=== PATIENT | male | born 1945 | race Caucasian/White ===

== ENCOUNTER 2017-05-09 06:08 | Day surgery (SDC) | payer OTHER ==
[~2017-05-09] VITALS: Ht 177.8 cm; Wt 99.7 kg
[2017-05-09] VITALS (8 sets, daily range): BP systolic 144–159; BP diastolic 52–80; PULSE 60–82; RESP 16–18; TEMP 97.7–98; O2SAT 92–97
[2017-05-09] MEDS ORDERED: SODIUM CHLORIDE 0.9% 500 ML BAG OTHER ONE (06:09)
[2017-05-09] MEDS ORDERED: SODIUM CHLORID 0.9% 500 ML INJ 500 ML IV SCH (06:45)
[2017-05-09] MEDS ORDERED: LORazepam 1 MG TAB SL SCH (06:45)
[2017-05-09] MEDS ORDERED: CHLORHEXIDINE GLUCONATE 2 % 1 PACK (2 CLOTHS) TOPICAL PRN (06:45)
[2017-05-09] MEDS ORDERED: LACTATED RINGER'S 1000 ML IV PRN (06:45)
[2017-05-09] MEDS ORDERED: POVIDONE IODINE 5% (ANTISEPSIS KIT) 4 APPLICATIONS EACH NARE PRN (06:45)
[2017-05-09] MEDS ORDERED: LISI40TA PO (07:05)
[2017-05-09] MEDS ORDERED: ATOR40TA16 PO (07:05)
[2017-05-09] MEDS ORDERED: AMLO10TA2 PO (07:05)
[2017-05-09] MEDS ORDERED: CLON0.1T PO (07:05)
[2017-05-09] MEDS ORDERED: METO50TA PO (07:05)
[2017-05-09] MEDS ORDERED: WARF-58 PO (07:05)
[2017-05-09 07:06] LABS: AUTOMATED NEUTROPHIL # 3.9 TH/MM3 (1.8-7.7); BASOPHIL # 0.1 TH/MM3 (0-0.2); EOSINOPHIL # 0.1 TH/MM3 (0-0.4); EOSINOPHIL % 1.3 % (0.0-4.0); HEMATOCRIT 48.4 % (39.0-51.0); HEMOGLOBIN 16.4 GM/DL (13.0-17.0); LYMPH % 28.3 % (9.0-44.0); LYMPHOCYTE # 1.8 TH/MM3 (1.0-4.8); MEAN CELL VOLUME 83.3 FL (80.0-100.0); MEAN CORPUSCULAR HEMOGLOBIN 28.1 PG (27.0-34.0); MEAN CORPUSCULAR HGB CONC 33.8 % (32.0-36.0); MEAN PLATELET VOLUME 8.2 FL (7.0-11.0); MONO % 7.6 % (0.0-8.0); MONOCYTE # 0.5 TH/MM3 (0-0.9); NEUT % 61.8 % (16.0-70.0); PLATELET COUNT 233 TH/MM3 (150-450); RED BLOOD COUNT 5.82 MIL/MM3 (4.50-5.90); RED CELL DISTRIBUTION WIDTH 15.1 % (11.6-17.2); WHITE BLOOD COUNT 6.3 TH/MM3 (4.0-11.0)
[2017-05-09] MEDS ORDERED: HEPARIN SODIUM - IV 10,000 UNITS/10 ML VIAL ONE ×2 (07:06→09:17)
[2017-05-09] MEDS ORDERED: HEPARIN-NS/PF FLUSH BAG 1,000 ML IV FLUSH ONE (07:06)
[2017-05-09 07:15] LABS: INTERNATIONAL NORMALIZED RATIO 3.1 RATIO; PROTHROMBIN TIME - PATIENT 31.2 SEC (9.8-11.6)
[2017-05-09 07:37] LABS: BICARBONATE 28.2 MEQ/L (21.0-32.0); CALCIUM 8.7 MG/DL (8.5-10.1); CREATININE 1.49 MG/DL (0.60-1.30)
[2017-05-09] MEDS ORDERED: HEPARIN-D5W 25,000 U/250 ML 250 ML ONE (09:16)
[2017-05-09] MEDS ORDERED: PROTAMINE SULFATE 50 MG/5 ML VIAL ONE (09:17)
[2017-05-09] MEDS ORDERED: LEVOFLOXACIN 500 MG PREMIX INJ 100 ML IV ONE (09:35)
[2017-05-09] MEDS ORDERED: ONDANSETRON HCL 4 MG/2 ML VIAL IV PUSH ONE (12:00)
[2017-05-09] MEDS ORDERED: METOPROLOL TARTRATE 5 MG/5 ML VIAL IV ONE (12:00)
[2017-05-09] MEDS ORDERED: LIDOCAINE HCL 1% PF 5 ML SYRINGE OTHER ONE (12:00)
[2017-05-09] MEDS ORDERED: PROPOFOL 200 MG/20 ML AMP IV ONE (12:00)
[2017-05-09] MEDS ORDERED: SODIUM CHLORID 0.9% 500 ML INJ 500 ML IV ONE (12:00)
[2017-05-09] MEDS ORDERED: ROCURONIUM INJ 50 MG/5 ML SYRINGE IV PUSH ONE (12:00)
[2017-05-09] MEDS ORDERED: ePHEDrine/NS 25 MG/5 ML SYRINGE IV ONE (12:00)
[2017-05-09] MEDS ORDERED: NEOSTIGMINE 5 MG/5 ML SYRINGE IV PUSH ONE (12:00)
[2017-05-09] MEDS ORDERED: PHENYLEPH/NS 1000 MCG/10 ML SYR IV ONE (12:00)
[2017-05-09] MEDS ORDERED: DEXAMETHASONE SOD PHOS 4 MG/ML VIAL IV ONE (12:00)
[2017-05-09] MEDS ORDERED: GLYCOPYRROLATE 1 MG/5 ML SYRINGE IV PUSH ONE (12:00)
--- NOTE | 2017-05-09 12:16 | CATHPROC ---
[facility] HIS Report Study Information Study Number Admission Scheduled Start Study Start [id number] May 09 2017 6:08AM 05/09/2017 May 09 2017 9:31AM [place] [facility] Electrophysiology Study Admit Source Facility Department Other [facility] - Electrical Design Engineer Physician and Clinical Staff Initial Kari [place] Chicken Sexer Abdoul Henderson,RT(R) Other Anesthesia, CIGAR MAKING MACHINE SUPERVISOR Recorder Deric RN, Radha Segura,RT(R) TECH2 Procedures Performed Procedure Location (Site) Vessel Name Ablation Procedure Cardioversion ICE CATHETER INSERT RA Atruim RF Ablation LT. ATRIUM LT. ATRIUM Equipment Time Artificial Plastic Eye Maker Description Size Mfg Part Number Used/Scraped NEEDLE, TRANSSEPTAL NRG 98 [id number] 09:55 [facility] Used C1 *[id number] [employer]/ EP [id number] 09:55 KIT, TRANSDUCER / AFIB Used PACER *[id number] CATHETER, TACTICATH ABLAT BUNDLE 09:55 BUNDLE-ST. BHUPINDER Used 65 BUNDLE *[id number]- BUNDLE [id number] CATHETER, FR7 OPTIMA SPIRAL 09:55 BUNDLE-ST. BHUPINDER FR7 *[id number]- Used BUNDLE BUNDLE [id number] 09:55 BUNDLE-ST. BHUPINDER CATHETER, JSN, QUAD BUNDLE FR 5 *[id number]- Used BUNDLE [id number] 09:55 BUNDLE-ST. BHUPINDER CATHETER, JSN, QUAD BUNDLE FR 5 *[id number]- Used BUNDLE [id number] SET, COOL POINT TUBING 09:55 BUNDLE-ST. BHUPINDER *[id number]- Used BUNDLE BUNDLE SHEATH, FR8.5 STEERABLE SM 09:55 BUNDLE-ST. BHUPINDER 71CM [id number] Used 71CM BUNDLE COVER, TRANSDUCER CABLE [id number] 09:55 [employer] Used ACUNAV *[id number] 09:55 CORDIS/PACER SHEATH, FR10 MATTHIAS 11CM FR 10 Used *[id number] 09:55 CORDIS/PACER SHEATH, FR9 MATTHIAS 11CM FR 9 [id number] Used [id number] 09:55 [employer] INDUSTRIES PACK, CCL CUSTOM * Used *[id number] 09:55 MEDLINE PACER PELAYO, LIMB * 2530 *[id number] Used [id number] 09:55 Attune RTD MEDICAL SHEATH, FR4.5 PRELUDE 11CM FR 4.5 Used [id number] 09:55 NAMIC TUBING, HIGH PRESSURE 48" 48" Used *[id number] 09:55 NAMIC TUBING, HIGH PRESSURE 48" 48" Used *[id number] NEEDLE, FEMORAL ONE STICK, [id number] 10:19 DANY 18GA Used 18GA *[id number] 09:55 QUICK MEDICAL BLANKET,WARM AIR CCL * Used *[id number] 09:55 [facility] BHUP[facility]ER MEDICAL ELECTRODE KIT, MARE X SURFACE * Used *[id number] 244569 09:55 [facility]. BHUP[facility]ER MEDICAL SHEATH, EPS, FR6 FAST CATH FR 6 Used *[id number] 09:55 ST. BHUPINDER MEDICAL SHEATH, EPS, FR7 FAST CATH FR 7 [id number] Used [id number] 09:55 [facility]. BHUP[facility] MEDICAL SHEATH, EPS, FR8 FAST CATH FR 8 Used *[id number] CATHETER, ACUNAV FR10 ICE [id number] 10:10 JOHANNE FR 10 Used (JOHANNE) *[id number] [facility] PAD, ELECTROSURGICAL 09:55 * [id number] *[id number] Used SURGICAL GROUNDING (BLUE) History: Allergies Allergy Reaction NKDA Labs Hgb (g/dl) Hct (%) WBC (l/cumm) Platelets (thousands) 11.60-17.00 35.00-51.00 4.00-11.00 150.00-450.00 16.4 48.4 6.3 233 Glucose (mg/dl) BUN (mg/dl) Creatinine (mg/dl) BUN:Creatinine (1:x) 74.00-106.00 7.00-18.00 0.50-1.30 10.00-20.00 101 13 1.5 8.7 Na (meq/l) K (meq/l) 136.00-145.00 3.50-5.10 140 4 INR (PTT:PT) 0.90-1.10 3.1 CPK-MB (ng/ML) 0.50-3.60 Not Drawn Medication Medication Total Dose (Bolus/Oral) Medication Total Dosage/Unit 1% XYLOCAINE 10 mL HEPARIN 7000 units LOPRESSOR 5 mg Medications (Bolus/Oral) Medication Time Given Dosage/Unit Administered By Reason 1% XYLOCAINE 05/09/2017 10:11:56 AM 10 mL Kari Soliz 10 mL 1% XYLOCAINE given by Kari Soliz in Left Groin via Subcutaneous. Ordered by Kari Soliz. HEPARIN 05/09/2017 10:44:57 AM 5000 units Anesthesia, CIGAR MAKING MACHINE SUPERVISOR 5000 units HEPARIN given by Anesthesia, CIGAR MAKING MACHINE SUPERVISOR via Peripheral IV. Ordered by Kari Soliz. HEPARIN 05/09/2017 11:33:10 AM 2000 units Anesthesia, CIGAR MAKING MACHINE SUPERVISOR 2000 units HEPARIN given by Anesthesia, CIGAR MAKING MACHINE SUPERVISOR via Peripheral IV. Ordered by Kari Soliz. LOPRESSOR 05/09/2017 11:47:55 AM 5 mg Anesthesia, CIGAR MAKING MACHINE SUPERVISOR 5 mg LOPRESSOR given by Anesthesia, CIGAR MAKING MACHINE SUPERVISOR. Ordered by Kari Soliz. Medication (Drip) Medication Time Given Dosage/Unit Concentration/Unit Diluent (ml) Solution ISUPREL 05/09/2017 11:38:39 AM 10 mcg/min 1 mg 250 NaCl .9 10 mcg/min ISUPREL given by Anesthesia, CIGAR MAKING MACHINE SUPERVISOR via Peripheral IV. Pump/Drip Flow = 150 ml/hr using NaCl .9 with a concentration of 1 mg in 250 ml. Ordered by Kari Soliz. ISUPREL 05/09/2017 11:47:13 AM 10 mcg/min 1 mg 250 NaCl .9 10 mcg/min ISUPREL given by Anesthesia, CIGAR MAKING MACHINE SUPERVISOR via Peripheral IV. Pump/Drip Flow = 150 ml/hr using NaCl .9 with a concentration of 1 mg in 250 ml. Ordered by Kari Soliz. Discontinued at 05/09/2017 11:47. LEVAQUIN 05/09/2017 9:45:10 AM 100 mL/hr 500 100 NaCl .9 100 mL/hr LEVAQUIN given by Anesthesia, CIGAR MAKING MACHINE SUPERVISOR via Peripheral IV. Pump/Drip Flow = 0 ml/hr using NaCl . 9 with a concentration of 500 in 100 ml. Ordered by Kari Soliz. Initial Case Assessment Cardiovascular HR 72 Edema Present Skin color Skin None Normal Warm Dry Neurological State Oriented to time-place- Alert Moves all extremities person Respiration - General SpO2 (%) 100 Chronological Log Time Study Chronological Log 9:10:45 Patient arrived via Bed. 9:10:46 Patient Name, D.O.B, / Armband Verified By R.N. 9:10:49 Consent signed by the physician and the patient and verified by the Electrical Design Engineer staff. 9:10:50 Pre-op and post- op instructions given; patient acknowledges understanding of instructions. 9:10:52 Anesthesia at bedside. Assumes care of patient. 9:10:55 Patient has been NPO for More than 6Hrs. 9:11:57 Skin Breakdown- none reported 9:13:31 Patient has been NPO for More than 6Hrs. 9:32:00 Patient Warmer Placed on the Table. 9:32:09 Disposable Defibrillator Pads Placed On Patient. 9:32:11 Jordana Prominences Protected 9:32:17 History and physical on the chart or being dictated. 9:32:22 Table restraints applied according to hospital policy 9:42:03 14 FR dillard CATHETER INSERTED BY Kisha LUNA RN CLEAR YELLOW URINE NOTED 100 mL/hr LEVAQUIN given by Anesthesia, CIGAR MAKING MACHINE SUPERVISOR via Peripheral IV. Pump/Drip Flow = 0 ml/hr using NaCl .9 with a 9:45:10 concentration of 500 in 100 ml. Ordered by Kari Soliz. 9:57:27 MD paged Assessment: Initial Case, HR=72 BPM, Edema=None, Color=Normal, Skin = Warm, Dry 9:57:33 Neurological: State=Alert, Ox3, VICENTE Respiration: ZqC7=286 % 9:58:24 MD responded 10:03:36 MD arrived. Time Out. Correct patient, procedure, procedure equipment, site and side verified with physicia n present. Time 10:04:30 concurred by MD, individual staff and CIGAR MAKING MACHINE SUPERVISOR. Time Out #2 - Consents verified, patient in correct position, all results are labled and displa yed, safety precautions 10:04:40 taken, antibiotics administered. Time out concurred by MD, individual staff and CIGAR MAKING MACHINE SUPERVISOR in procedu re 10:05:50 Case Start 10:08:03 ONELIA IN PROGRESS 10:11:33 ONELIA COMPLETE 10:11:56 10 mL 1% XYLOCAINE given by Kari Soliz in Left Groin via Subcutaneous. Ordered by Kari Soliz. 10:13:36 Vascular access was obtained in the Fem Art (left). 10:14:06 A SHEATH, FR4.5 PRELUDE 11CM FR 4.5 was advanced into the Fem Art (right) using the Modifie d Seldinger technique. 10:29:22 Vascular access was obtained in the Fem Vein (right). 10:29:26 Vascular access was obtained in the Fem Vein (right). 10:29:29 Vascular access was obtained in the Fem Vein (right). 10:36:36 A SHEATH, FR10 MATTHIAS 11CM FR 10 was advanced into the Fem Vein (right) using the Modified Seldinger technique. 10:37:06 A SHEATH, EPS, FR6 FAST CATH FR 6 was advanced into the Fem Vein (right) using the Modified Seldinger technique. 10:37:24 A SHEATH, EPS, FR7 FAST CATH FR 7 was advanced into the Fem Vein (right) using the Modified Seldinger technique. 10:37:42 A SHEATH, EPS, FR8 FAST CATH FR 8 was advanced into the Fem Vein (right) using the Modified Seldinger technique. A CATHETER, JSN, QUAD BUNDLE FR 5 was advanced vis Fem Vein (right) and placed in the CS. Place ment was 10:38:26 visually confirmed under fluoroscopy. A SHEATH, FR8.5 STEERABLE SM 71CM BUNDLE 71CM was exchanged in the Fem Vein (right). This was n ecessary in 10:39:30 order to accomodate a larger catheter. 10:43:56 CATHETER, ACUNAV FR10 ICE (Tagasauris) FR 10 Was Postioned. 10:44:29 MONET NEEDLE INSERTION 10:44:57 5000 units HEPARIN given by Anesthesia, CIGAR MAKING MACHINE SUPERVISOR via Peripheral IV. Ordered by Kari Soliz. 10:46:04 TRANS SEPTAL ACCESS OBTAINED, MONET NEEDLE REMOVED A CATHETER, FR7 OPTIMA SPIRAL BUNDLE FR7 was advanced vis Fem Vein (right) and placed in the LA . Placement 10:47:40 was visually confirmed under fluoroscopy. 10:49:28 MAPPING OF LA AND PULM VEINS IN PROGRESS 10:55:56 Activated Clotting Time Drawn 10:57:51 ACT (Normal Range 90-180) = 358 10:59:30 MAPPING CATHETER REMOVED A CATHETER, TACTICATH ABLAT 65 BUNDLE was advanced vis Fem Vein (right) and placed in the LA. P lacement was 11:00:06 visually confirmed under fluoroscopy. 11:00:31 RF Ablation of the LT. ATRIUM AND PULM VEINS with a CATHETER, TACTICATH ABLAT 65 BUNDLE . 11:07:54 ABLATION IN PROGRESS 11:30:18 Activated Clotting Time Drawn 11:31:55 ACT (Normal Range 90-180) = 299 11:33:10 2000 units HEPARIN given by Anesthesia, CIGAR MAKING MACHINE SUPERVISOR via Peripheral IV. Ordered by Kari Soliz. 11:37:38 ECG rhythm of AF noted. Patient cardioverted at 200 joules. PATIENT CONVERTED TO NSR POST C ARDIOVERSION 11:38:16 Ablation procedure performed: AFIB. 11:38:22 EP Procedure was performed. 10 mcg/min ISUPREL given by Anesthesia, CIGAR MAKING MACHINE SUPERVISOR via Peripheral IV. Pump/Drip Flow = 150 ml/hr usi ng NaCl .9 with a 11:38:39 concentration of 1 mg in 250 ml. Ordered by Kari Soliz. 11:41:10 Activated Clotting Time Drawn 11:46:17 ACT (Normal Range 90-180) = 391 10 mcg/min ISUPREL given by Anesthesia, CIGAR MAKING MACHINE SUPERVISOR via Peripheral IV. Pump/Drip Flow = 150 ml/hr usi ng NaCl .9 with a 11:47:13 concentration of 1 mg in 250 ml. Ordered by Kari Soliz. Discontinued at 05/09/2017 11:47. 11:47:55 5 mg LOPRESSOR given by Anesthesia, CIGAR MAKING MACHINE SUPERVISOR. Ordered by Kari Soliz. In the Fem Vein (right) the SHEATH, EPS, FR6 FAST CATH FR [address] by Darryn Wynn, RT(R) 11:49:29 TECH2. In the Fem Vein (right) the SHEATH, EPS, FR7 FAST CATH FR [address] by Darryn Wynn, RT(R) 11:49:45 TECH2. In the Fem Vein (right) the SHEATH, FR10 MATTHIAS 11CM FR [address] by Nina Wynn, RT(R) 11:50:01 TECH2. A SHEATH, FR9 MATTHIAS 11CM FR 9 was exchanged in the Fem Vein (right). This was necessary in or angela to minimize 11:50:24 site leakage. 11:50:49 In the Fem Vein (right) the SHEATH, FR9 MATTHIAS 11CM FR [address] by Juan J Wynn RT(R) TECH2. In the Fem Art (left) the SHEATH, FR4.5 PRELUDE 11CM FR 4.[address] by Darryn Wynn, RT(R) 11:51:06 TECH2. 11:51:31 Case End 11:52:04 Sterile dressing applied to site 11:52:08 No case complications noted. 12:02:01 PACU called. Spoke to RADHA 12:15:00 Bedside Report will be given. 12:15:12 Patient moved to stretcher End Study - Contrast Media Used In Study Contrast Total Opened (mL) Total Used (mL) Total Wasted (mL) Unspecified 0 0 0 End Study - Maximum Contrast Load Max Contrast Load (mL) 317.3 End Study - Radiation Exposure Fluoro Time (minutes) 1.2 End Study - Patient Disposition Complications Transferred To Interventional Outcome No Telemetry Bed successful
--- NOTE | 2017-05-09 12:17 | PD.CARD ---
Atrial Fibrillation Ablation PROCEDURE DATE: May 09, 2017 PROCEDURES PERFORMED: 1. Electrophysiology study on Isuprel infusion 2. CS cannulation 3. 3-D mapping 4. Transseptal approach 5. Right and left heart catheterization 6. Intracardiac echo 7. Radiofrequency ablation of atrial fibrillation 8. Pulmonary vein isolation 9. Posterior wall ablation 10. Mitral valve isolation 11. Mitral line creation 12. Left atrial tachycardia ablation 13. Roof line creation 14. Floor line creation 15. Anterior wall ablation 16. Cardioversion INDICATIONS FOR THE PROCEDURE Mr. Dyson is a 71-year-old male with atrial fibrillation referred for electrophysiology study and ablation. The patient is symptomatic and on anticoagulation. The risks, the nature and the benefits of the procedure were clearly stated to him. The risks include pneumothorax, cardiac perforation, stroke, need for open heart surgery and even . The patient understood and agreed to proceed. DESCRIPTION OF THE PROCEDURE IN DETAIL As written informed consent was obtained prior to esophageal echocardiogram, the patient was kept on the table where he was prepped and draped in the usual sterile fashion. Conscious sedation was initiated and maintained throughout the procedure by the anesthesiologist. Once sedation was verified, the right and left inguinal areas were anesthetized with 2% Xylocaine. Using modified Seldinger technique, the left femoral vein was cannulated on three occasions, three guidewires were advanced. Over the wire a 6, 7 and a 10-Yemeni Hemaquet were advanced. Then the left femoral artery was cannulated on one occasion, one guidewire was advanced. Over the wire a 4-Yemeni Hemaquet was advanced. Then the right femoral vein was cannulated on one occasion, one guidewire was advanced. Over the wire a 8-Yemeni Hemaquet was advanced. Then under fluoroscopic guidance through the 6 and 7-Yemeni Hemaquet, two 5-Yemeni Niurka curved quadripolar electrophysiology catheters were advanced and placed around the His as well as coronary sinus. Basic interval was measured. The patient was in atrial fibrillation. Through the 10-Yemeni Hemaquet, a Cordis Lorenzana AcuNav intracardiac echo catheter was advanced and placed at the right atrium. Multiple view was obtained. There is no pericardial effusion, pulmonary vein was seen, atrial septal was visualized. There is moderate left atrial enlargement. Then the 8-Yemeni Hemaquet in the right femoral vein was exchanged for Agilis transseptal sheath that was placed all the way to the superior vena cava. Through the sheath a Giovanni needle was advanced, then the sheath, the dilator and the needle were progressed until foci engaged. Once engaged, the needle was advanced. RF was delivered for 2 seconds. I was able to cross into the left atrium. Once the needle crossed, the dilator was advanced. Once the dilator crossed, the sheath was advanced. Once the sheath crossed, the dilator and the needle were removed. At this point I did flood the system and fluid movement was seen in the left atrium the indicates the sheath is in good position. The patient already received 5,000 units of heparin. The goal is to keep an ACT around 350 during ablation. Then through the sheath a St. Alexandru 20 pulse circumferential catheter was advanced. Using [employer] endocardial solution mapping system, a two-dimensional configuration of the left atrium was obtained. Points were taken at the left superior and inferior veins, right superior and inferior veins, mitral valve, and appendages. Then through the sheath a St. Alexandru TactiCath 65cm 3.5mm irrigated tipped mapping and radiofrequency ablation catheter was advanced. Esophageal probe was placed temperature monitoring during ablation. When it increased to 0.5 degrees Celsius above baseline, I moved to a different area of the atrium. First I did isolate the left superior and inferior vein. I did make a big ewiiaapaayp around the veins. Posterior was ablated. Then a roof line was created, a floor line was created, a mitral line was isolated, then the mitral valve was isolated. At that point the patient was in left atrial tachycardia. I did create a line from the floor to the roof area, passing by the left atrial appendage. Then the right superior and inferior veins were isolated. I did remap the atrium. There is no significant signal in the atrium. At this point I decided to proceed with cardioversion. A 200 sync biphasic joule was delivered that converted the patient into sinus rhythm. At that point I did advance the circumferential catheter again into the vein. There was no signal into the vein, pacing from the vein showed no conduction to the atrium. Isuprel infusion was initiated at 10 mcg for over 10 minutes. No tachyarrhythmia was induced, post Isuprel no tachyarrhythmia was induced. At that point the procedure was complete. All catheters were removed, atrial septal sheath was exchanged for 9-Yemeni Hemaquet, intracardiac echo showed no pericardial effusion. There is still good flow in the pulmonary vein. The patient is going to be transferred to the recovery room. No incident report. The patient tolerated the procedure. Blood loss was minimal. FINDINGS 1. Electrocardiogram: At baseline the patient was in atrial fibrillation, post procedure the patient was in sinus rhythm. 2. Basic interval: Base cycle length was around 640. Post ablation she was around 980 milliseconds. AH at 90 and HV at 45 milliseconds. 3. Tachyarrhythmia: Atrial fibrillation was mapped and ablated. Atrial tachycardia was ablated. The ablation was successful. CONCLUSION Successful electrophysiology study, mapping, radiofrequency ablation of atrial fibrillation, left atrial tachycardia, pulmonary vein isolation, posterior ablation, mitral valve isolation, mitral line creation, roof line creation, floor line creation, left atrial tachycardia, and cardioversion. COMMENTS AND RECOMMENDATIONS The patient is going to be transferred to the telemetry unit. Will be observed and when stable can be discharged home. Kari Soliz MD May 09, 2017 12:17
[2017-05-09] MEDS ORDERED: DO NOT ADM ANY ANTICOAGULANT DRUGS PRN (12:23)
[2017-05-09] MEDS ORDERED: LORazepam 2 MG/ML VIAL IV PUSH PRN (12:30)
[2017-05-09] MEDS ORDERED: SODIUM CHLOR 0.9% 250 ML INJ 250 ML IV PRN (12:30)
[2017-05-09] MEDS ORDERED: LIDOCAINE HCL 1% 50 ML VIAL INFIL PRN (12:30)
[2017-05-09] MEDS ORDERED: ONDANSETRON HCL 4 MG/2 ML VIAL IV PUSH PRN (12:30)
[2017-05-09] MEDS ORDERED: ATROPINE SULFATE 1 MG/ML VIAL IV PUSH PRN (12:30)
[2017-05-09] MEDS ORDERED: BACITRACIN OINT 0.9 GM PKT TOP ONE (12:30)
[2017-05-09] MEDS ORDERED: MIDAZOLAM HCL 2 MG/2 ML VIAL ONE (12:36)
[2017-05-09] MEDS: LISINOPRIL 20 MG TAB PO SCH (15:00)
[2017-05-09] MEDS: AMIODARONE 200 MG TAB PO SCH ×2 (15:00→22:24)
[2017-05-09] MEDS ORDERED: WARFARIN SOD 2 MG TAB PO SCH (16:00)
[2017-05-09] MEDS ORDERED: ATORVASTATIN 40 MG TAB PO SCH (21:00)
[2017-05-09] MEDS: cloNIDine HCL 0.1 MG TAB PO SCH (22:24)
[2017-05-10] VITALS (11 sets, daily range): BP systolic 145–159; BP diastolic 73–86; PULSE 59–76; RESP 16–18; TEMP 98.2–98.4; O2SAT 95–96
--- NOTE | 2017-05-10 00:11 | EKG ---
Date Performed: 05/09/2017 Time Performed: 06:58:48 PTAGE: 71 years EKG: Atrial fibrillation with slow ventricular response. Leftward axis rSr'(V1) - probable cristal l variant Inferior infarct - age undetermined Septal and lateral ST-T changes are nonspecific Abnorma l ECG NO PREVIOUS TRACING DOCTOR: Kari Soliz Interpretating Date/Time 05/10/2017 00:05:07
[2017-05-10 05:23] LABS: PROTHROMBIN TIME - PATIENT 30.4 SEC (9.8-11.6)
[2017-05-10] MEDS ORDERED: COUM2TAB PO (07:40)
[2017-05-10] MEDS ORDERED: AMIO200T PO ×2 (07:40)
--- NOTE | 2017-05-10 07:44 | PD.CARD.PN ---
Subjective Subjective Remarks Feels okay. Objective Medications Current Medications Medications (Trade) Dose Ordered Sig/Cedrick Route Start Time Stop Time Status Last Admin Sodium Chloride 500 ml @ 30 mls/hr [id number] IV 05/09/17 06:45 (Ativan) 1 mg WAREHOUSE SHIPPING RECEIVING CLERK SL 05/09/17 06:45 05/12/17 06:44 Lactated Ringer's 1,000 ml @ 30 mls/hr Q24H PRN IV 05/09/17 06:45 05/12/17 06:44 (Betadine 5% Antisepsis Kit) 1 applic WAREHOUSE SHIPPING RECEIVING CLERK PRN EACH NARE 05/09/17 06:45 05/12/17 06:44 (Chlorhexidine 2% Cloth) 3 pack WAREHOUSE SHIPPING RECEIVING CLERK PRN TOPICAL 05/09/17 06:45 05/12/17 06:44 (Ativan Inj) 0.5 mg UNSCH PRN IV PUSH 05/09/17 12:30 05/10/17 12:29 (Atropine Inj) 0.5 mg UNSCH PRN IV PUSH 05/09/17 12:30 Sodium Chloride 250 ml @ 500 mls/hr ONCE PRN IV 05/09/17 12:30 05/10/17 12:29 (Zofran Inj) 4 mg Q4H PRN IV PUSH 05/09/17 12:30 (Xylocaine 1% Inj (50 ml)) 10 ml UNSCH PRN INFIL 05/09/17 12:30 05/10/17 12:29 (Norvasc) 10 mg DAILY PO 05/10/17 09:00 (Lipitor) 40 mg HS PO 05/09/17 21:00 05/09/17 22:24 (Catapres) 0.1 mg BID PO 05/09/17 21:00 05/09/17 22:24 (Prinivil) 40 mg DAILY PO 05/09/17 15:00 05/09/17 15:00 (Cordarone) 400 mg BID PO 05/09/17 15:00 05/09/17 22:24 (Coumadin) 2 mg DAILY@1600 PO 05/09/17 16:00 05/09/17 16:00 Miscellaneous Information ALL NURSING DEPARTME... UNSCH PRN .XX 05/09/17 12:23 05/10/17 12:22 Vital Signs / I&O Vital Signs Date Time Temp Pulse Resp B/P (MAP) Pulse Ox O2 Delivery O2 Flow Rate FiO2 05/10/17 06:00 60 05/10/17 05:00 59 05/10/17 04:00 98.2 74 16 145/73 (97) 95 05/10/17 04:00 74 05/10/17 03:06 60 05/10/17 02:00 62 05/10/17 01:00 68 05/10/17 00:00 98.4 66 16 159/76 (103) 96 05/10/17 00:00 60 05/09/17 23:00 60 05/09/17 22:00 60 05/09/17 21:00 64 05/09/17 20:00 82 05/09/17 20:00 98.0 78 16 159/80 (106) 96 05/09/17 19:00 62 05/09/17 18:00 68 05/09/17 17:00 97.7 66 16 148/80 (102) 92 05/09/17 17:00 65 05/09/17 16:30 98.1 62 14 143/70 (94) 96 Nasal Cannula 2 05/09/17 15:30 61 14 144/71 (95) 95 Nasal Cannula 2 05/09/17 14:30 61 14 139/72 (94) 94 Nasal Cannula 2 05/09/17 13:30 60 14 142/69 (93) 94 Nasal Cannula 2 05/09/17 13:15 60 14 159/72 (101) 94 Nasal Cannula 2 05/09/17 13:00 60 14 157/71 (99) 94 Nasal Cannula 2 05/09/17 12:45 60 14 161/74 (103) 97 Nasal Cannula 2 05/09/17 12:30 60 14 152/74 (100) 97 Nasal Cannula 2 05/09/17 12:25 97.6 60 14 156/85 (108) 96 Nasal Cannula 2 I/O 05/09/17 05/09/17 05/09/17 05/10/17 05/10/17 05/10/17 07:00 15:00 23:00 07:00 15:00 23:00 Intake Total 240 ml 240 ml Output Total 150 ml 500 ml Balance -150 ml 240 ml -260 ml Intake Oral 240 ml 240 ml Output Urine Total 150 ml 500 ml Physical Exam GENERAL: Well-nourished, well-developed patient. SKIN: Warm and dry. Groin site soft without bruising or bleeding. HEAD: Normocephalic. EYES: No scleral icterus. No injection or drainage. NECK: Supple, trachea midline. No JVD or lymphadenopathy. CARDIOVASCULAR: Regular rate and rhythm without murmurs, gallops, or rubs. RESPIRATORY: Breath sounds equal bilaterally. No accessory muscle use. GASTROINTESTINAL: Abdomen soft, non-tender, nondistended. EXTREMITIES: No cyanosis, or edema. NEUROLOGICAL: Awake, alert, and oriented x 3. Non-focal. Laboratory Laboratory Tests Test 05/10/17 04:47 Prothrombin Time 30.4 SEC Prothromb Time International Ratio 3.0 RATIO Activated Partial Thromboplast Time 35.6 SEC Assessment and Plan Problem List: (1) Atrial fibrillation ICD Codes: I48.91 - Unspecified atrial fibrillation Plan: Sinus rhythm on telemetry this morning. (2) S/P ablation of atrial fibrillation ICD Codes: Z98.890 - Other specified postprocedural states; Z86.79 - Personal history of other diseases of the circulatory system Plan: Amiodarone 400 mg p.o. twice daily 5 days then 200 mg daily. Decrease Coumadin to 2 mg daily. Have INR checked in 1 day, results to Dr. Soliz. Follow-up with Dr. Soliz in 3 weeks per my discussion with him. Jesica Carlos May 10, 2017 07:44
[2017-05-10] MEDS: AMIODARONE 200 MG TAB PO SCH (08:25)
[2017-05-10] MEDS: cloNIDine HCL 0.1 MG TAB PO SCH (08:26)
[2017-05-10] MEDS: LISINOPRIL 20 MG TAB PO SCH (08:26)
[2017-05-10] MEDS ORDERED: WARFARIN SOD 3 MG TAB PO SCH (09:00)
--- NOTE | 2017-05-10 14:24 | EKG ---
Date Performed: 05/09/2017 Time Performed: 12:49:37 PTAGE: 71 years EKG: Sinus rhythm WITH FIRST DEGREE AV BLOCK INCOMPLETE RIGHT BUNDLE BRANCH BLOCK PROLONGED QT INTERVAL Compared to pr evious tracing sinus rhythm has replaced atrial fibrillation ABNORMAL ECG PREVIOUS TRACING : 05/09/2017 06.58 DOCTOR: Talon Rivera Interpretating Date/Time 05/10/2017 14:23:31
--- NOTE | 2017-05-10 15:52 | EKG ---
Date Performed: 05/10/2017 Time Performed: 01:33:22 PTAGE: 71 years EKG: Sinus rhythm with 1st degree A-V block Abnormal ECG Since the PREVIOUS TRACING , no significant change noted PREVIOUS TRACIN05/09/2017 12.49 DOCTOR: Talon Rivera Interpretating Date/Time 05/10/2017 15:49:18
== END 2017-05-10 10:30 | disposition home or self-care (01) ==
LOC: HDOC 06:08 → HDIC 06:08 → HCPC 16:47 → HCIS 05-10 07:58 → HDOC 05-10 10:30
PROVIDERS: ATTEND Internal Medicine Interventional Cardiology
DX: I48.2 Chronic atrial fibrillation (principal); I47.1 Supraventricular tachycardia; I10 Essential (primary) hypertension; I51.7 Cardiomegaly; I50.9 Heart failure, unspecified; Z79.01 Long term (current) use of anticoagulants
CPT/HCPCS: 00537; 80048; 85002; 85025; 85610; 85730; 86850; 86900; 86901; 92960; 93005; 93312; 93320; 93325; 93613; 93623; 93656; 93662; C1730; C1731; C1732; C1759; C1766; C2630; J1100; J1644; J1956; J2250; J2370; J2405; J2710; J2720; J3010; J7040

== ENCOUNTER 2017-06-21 05:45 | Day surgery (SDC) | payer OTHER ==
[2017-06-21] MEDS ORDERED: CHLORHEXIDINE GLUCONATE 2 % 1 PACK (2 CLOTHS) TOPICAL (06:00)
[2017-06-21] MEDS ORDERED: SODIUM CHLORID 0.9% 500 ML IV (06:00)
[2017-06-21] MEDS ORDERED: LORazepam 1 MG TAB SL (06:00)
[2017-06-21] MEDS ORDERED: LACTATED RINGER'S 1000 ML IV (06:00)
[2017-06-21] MEDS ORDERED: INSULIN HUMAN REGULAR 1,000 UNITS/10 ML VIAL SQ (06:00)
[2017-06-21] MEDS ORDERED: METOPROLOL TARTRATE 25 MG TAB PO (06:00)
[2017-06-21] MEDS ORDERED: POVIDONE IODINE 5% (ANTISEPSIS KIT) 4 APPLICATIONS EACH NARE (06:00)
[2017-06-21 06:58] LABS: AUTOMATED NEUTROPHIL # 4.3 TH/MM3 (1.8-7.7); BASOPHIL % 0.5 % (0.0-2.0); EOSINOPHIL # 0.1 TH/MM3 (0-0.4); EOSINOPHIL % 1.5 % (0.0-4.0); HEMATOCRIT 47.5 % (39.0-51.0); HEMO FLAGS DIFF FINAL; HEMOGLOBIN 16.1 GM/DL (13.0-17.0); LYMPH % 27.9 % (9.0-44.0); MEAN CORPUSCULAR HEMOGLOBIN 28.5 PG (27.0-34.0); MEAN CORPUSCULAR HGB CONC 33.9 % (32.0-36.0); MEAN PLATELET VOLUME 8.2 FL (7.0-11.0); MONO % 9.1 % (0.0-8.0); MONOCYTE # 0.6 TH/MM3 (0-0.9); PLATELET COUNT 256 TH/MM3 (150-450); RED BLOOD COUNT 5.66 MIL/MM3 (4.50-5.90); RED CELL DISTRIBUTION WIDTH 14.9 % (11.6-17.2); WHITE BLOOD COUNT 7.1 TH/MM3 (4.0-11.0)
[2017-06-21] MEDS: SODIUM CHLORID 0.9% 500 ML INJ 500 ML IV ×2 (06:58→20:32)
[2017-06-21] MEDS: LIDOCAINE HCL 1% PF 30 ML VIAL (07:01)
[2017-06-21] MEDS: HEPARIN-NS/PF FLUSH BAG 3,000 ML IV FLUSH (07:01)
[2017-06-21 07:07] LABS: APTT (PATIENT) 42.3 SEC (24.3-30.1); INTERNATIONAL NORMALIZED RATIO 3.3 RATIO; PROTHROMBIN TIME - PATIENT 33.5 SEC (9.8-11.6)
[2017-06-21] MEDS ORDERED: HEPARIN-D5W 25,000 U/250 ML 250 ML (07:08)
[2017-06-21] MEDS ORDERED: PROTAMINE SULFATE 50 MG/5 ML VIAL (07:08)
[2017-06-21] MEDS ORDERED: HEPARIN SODIUM - IV 10,000 UNITS/10 ML VIAL (07:08)
[2017-06-21] MEDS ORDERED: ISOPROTERENOL INJ PREMIX 50 ML IV (07:08)
[2017-06-21] MEDS ORDERED: FUROSEMIDE 40 MG/4 ML VIAL (07:09)
[2017-06-21 07:15] LABS: ANION GAP 9 MEQ/L (5-15); BLOOD UREA NITROGEN 13 MG/DL (7-18); CALCIUM 8.4 MG/DL (8.5-10.1); CHLORIDE 106 MEQ/L (98-107); CREATININE 1.63 MG/DL (0.60-1.30); GLOMERULAR FILTRATION RATE 42 ML/MIN (>89); GLUCOSE,RANDOM 102 MG/DL (74-106); SODIUM (NA) 142 MEQ/L (136-145)
[2017-06-21] MEDS: LEVOFLOXACIN 500 MG PREMIX INJ 100 ML IV (07:52)
[2017-06-21] MEDS ORDERED: LORazepam 2 MG/ML VIAL IV PUSH (09:30)
[2017-06-21] MEDS ORDERED: SODIUM CHLOR 0.9% 250 ML INJ 250 ML IV (09:30)
[2017-06-21] MEDS ORDERED: ONDANSETRON HCL 4 MG/2 ML VIAL IV PUSH (09:30)
[2017-06-21] MEDS ORDERED: BACITRACIN OINT 0.9 GM PKT TOP (09:30)
[2017-06-21] MEDS ORDERED: LIDOCAINE HCL 1% 50 ML VIAL INFIL (09:30)
[2017-06-21] MEDS ORDERED: ATROPINE SULFATE 1 MG/ML VIAL IV PUSH (09:30)
[2017-06-21] MEDS ORDERED: DO NOT ADM ANY ANTICOAGULANT DRUGS (10:02)
[2017-06-21] MEDS: LISINOPRIL 20 MG TAB PO (10:15)
[2017-06-21] MEDS ORDERED: GLYCOPYRROLATE 1 MG/5 ML SYRINGE IV PUSH (12:00)
[2017-06-21] MEDS ORDERED: PHENYLEPH/NS 1000 MCG/10 ML SYR IV (12:00)
[2017-06-21] MEDS ORDERED: PROPOFOL 200 MG/20 ML AMP IV (12:00)
[2017-06-21] MEDS ORDERED: NEOSTIGMINE 5 MG/5 ML SYRINGE IV PUSH (12:00)
[2017-06-21] MEDS ORDERED: DEXAMETHASONE SOD PHOS 4 MG/ML VIAL IV (12:00)
[2017-06-21] MEDS ORDERED: ROCURONIUM INJ 50 MG/5 ML SYRINGE IV PUSH (12:00)
[2017-06-21] MEDS ORDERED: ePHEDrine/NS 25 MG/5 ML SYRINGE IV (12:00)
[2017-06-21] MEDS ORDERED: LIDOCAINE HCL 1% PF 5 ML SYRINGE OTHER (12:00)
[2017-06-21] MEDS ORDERED: ONDANSETRON HCL 4 MG/2 ML VIAL IV (12:00)
[2017-06-21] MEDS: cloNIDine HCL 0.1 MG TAB PO (20:31)
[2017-06-21] MEDS: ATORVASTATIN 40 MG TAB PO (20:32)
[2017-06-22 06:39] LABS: APTT (PATIENT) 39.7 SEC (24.3-30.1); INTERNATIONAL NORMALIZED RATIO 3.5 RATIO; PROTHROMBIN TIME - PATIENT 34.8 SEC (9.8-11.6)
[2017-06-22] MEDS: LISINOPRIL 20 MG TAB PO (08:47)
[2017-06-22] MEDS: cloNIDine HCL 0.1 MG TAB PO (08:47)
[2017-06-22] MEDS: AMIODARONE 200 MG TAB PO (08:47)
[2017-06-22] MEDS ORDERED: WARFARIN SOD 2 MG TAB PO (16:00)
== END 2017-06-22 11:10 | disposition home or self-care (01) ==
LOC: HDOC 05:45 → HDIC 05:45 → HCIS 14:25
DX: I48.91 Unspecified atrial fibrillation (principal); I47.1 Supraventricular tachycardia; I25.2 Old myocardial infarction; I10 Essential (primary) hypertension; I73.9 Peripheral vascular disease, unspecified; Z01.810 Encounter for preprocedural cardiovascular examination; Z01.818 Encounter for other preprocedural examination
CPT/HCPCS: 00537; 80048; 85002; 85002-91; 85025; 85610; 85730; 86850; 86900; 86901; 93005; 93312; 93320; 93325; 93613; 93623; 93656; 93662